=== PATIENT | male | born 1990 | race African-American/Black ===

== ENCOUNTER 2017-10-24 13:41 | Emergency (ER) | payer OTHER ==
[~2017-10-24] VITALS: Ht 190.5 cm; Wt 93.9 kg
[2017-10-24] MEDS ORDERED: AUGMENTIN 875-1 EACH PO (17:32)
== END 2017-10-24 17:53 | disposition home or self-care (01) ==
LOC: ED 13:41
DX: S61.052A Open bite of left thumb without damage to nail, initial encounter (principal); S51.851A Open bite of right forearm, initial encounter; W54.0XXA Bitten by dog, initial encounter
CPT/HCPCS: 90471; 90715; 99283